=== PATIENT | female | born 1990 ===

== ENCOUNTER 2019-10-28 16:14 | Inpatient (IN) | payer OTHER ==
[2019-10-28] MEDS ORDERED: Methylergonovine 0.2 MG/1 ML Amp IM PRN (16:21)
[2019-10-28] MEDS ORDERED: Misoprostol 200 MCG Tab PO PRN (16:21)
[2019-10-28] MEDS ORDERED: Sodium Chloride 0.9% 10 ML Syringe FLUSH PRN (16:21)
[2019-10-28] MEDS ORDERED: Nalbuphine 10 MG/1 ML Vial IVPUSH PRN (16:21)
[2019-10-28] MEDS ORDERED: Sodium Chloride 0.9% 10 ML SDV IV PRN (16:21)
[2019-10-28] MEDS ORDERED: Carboprost Tromethamine 250 MCG/1 ML Amp IM PRN (16:21)
[2019-10-28] MEDS ORDERED: Ondansetron 4 MG/2 ML SDV IVPUSH PRN (16:21)
[2019-10-28] MEDS ORDERED: Water For Irrigation,Sterile 1,000 ML Container IRR PRN (16:21)
[2019-10-28] MEDS ORDERED: Sodium Chloride 0.9% 2.5 ML Syringe FLUSH PRN (16:21)
[2019-10-28] MEDS ORDERED: Butorphanol 1 MG/ML SDV IVPUSH PRN (16:21)
[2019-10-28] MEDS ORDERED: Lidocaine 1% 50 ML MDV INJECT PRN (16:21)
[2019-10-28] MEDS ORDERED: Tranexamic Acid 1,000 MG in Sodium Chloride 0.9% 100 ML IV PRN (16:21)
[2019-10-28] MEDS ORDERED: Terbutaline 1 MG/ML SDV SUBCUT PRN (16:24)
[2019-10-28] MEDS ORDERED: Misoprostol 25 MCG (1/4 of 100 MCG) Tab VAG PRN ×4 (16:24→17:45)
[2019-10-28] MEDS ORDERED: Oxytocin/0.9 % Sodium Chloride 30 UNIT/500 ML BAG IV SCH ×2 (16:30)
[2019-10-28] MEDS ORDERED: Misoprostol 50 MCG (1/2 of 100 MCG) Tab VAG SCH (17:30)
[2019-10-29] MEDS ORDERED: Misoprostol 50 MCG (1/2 of 100 MCG) Tab VAG PRN
[2019-10-29] MEDS ORDERED: Misoprostol 25 MCG (1/4 of 100 MCG) Tab PO PRN (00:06)
[2019-10-29] MEDS ORDERED: Terbutaline 1 MG/ML SDV SUBCUT PRN (00:06)
[2019-10-29] MEDS: Misoprostol 25 MCG (1/4 of 100 MCG) Tab VAG PRN ×2 (00:14→06:01)
[2019-10-29] MEDS: Lactated Ringers 1,000 ML IV SCH ×3 (01:01→20:00)
[2019-10-29] MEDS ORDERED: Ropivacaine HCl/PF 100 ML ONE ×2 (08:20→17:27)
[2019-10-29] MEDS ORDERED: fentaNYL 100 MCG/2 ML SDV ONE ×2 (08:20→17:28)
--- NOTE | 2019-10-29 08:42 | PCM.PREANE ---
Preanesthetic Assessment - Anesthesia/Transfusion/Family Hx Anesthesia History: Prior Anesthesia Without Reaction Family History of Anesthesia Reaction: No - Physical Assessment NPO Status Date: 10/29/19 NPO Status Time: 00:05 Height: 1.55 m Weight: 72.575 kg ASA Class: 2 - Lab Values: Laboratory Last Values WBC 8.62 K/uL (4.0-11.0) 10/28/19 16:35 RBC 3.91 M/uL (4.30-5.90) L 10/28/19 16:35 Hgb 12.3 g/dL (12.0-16.0) 10/28/19 16:35 Hct 37.3 % (36.0-46.0) 10/28/19 16:35 MCV 95.4 fL (80.0-98.0) 10/28/19 16:35 MCH 31.5 pg (27.0-32.0) 10/28/19 16:35 MCHC 33.0 g/dL (31.0-37.0) 10/28/19 16:35 RDW Std Deviation 43.7 fl (28.0-62.0) 10/28/19 16:35 RDW Coeff of Keith 13 % (11.0-15.0) 10/28/19 16:35 Plt Count 118 K/uL (150-400) L 10/28/19 16:35 MPV 13.20 fL (7.40-12.00) H 10/28/19 16:35 Nucleated RBC % 0.0 /100WBC 10/28/19 16:35 Nucleated RBCs # 0 K/uL 10/28/19 16:35 COVID-19 (JV) NEGATIVE (NEGATIVE) 10/28/19 16:38 Blood Type O POSITIVE 10/28/19 16:35 Antibody Screen NEGATIVE 10/28/19 16:35 - Allergies Allergies/Adverse Reactions: Allergies Allergy/AdvReac Type Severity Reaction Status Date / Time No Known Allergies Allergy Verified 10/28/19 16:21 - Acknowledgements Anesthesia Type Planned: Epidural Pt an Appropriate Candidate for the Planned Anesthesia: Yes Alternatives and Risks of Anesthesia Discussed w Pt/Guardian: Yes Pt/Guardian Understands and Agrees with Anesthesia Plan: Yes PreAnesthesia Questionnaire - Past Health History Medical/Surgical History: Denies Medical/Surgical History 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: - SUBSTANCE USE Smoking Status *Q: Never Smoker Second Hand Smoke Exposure: No Recreational Drug Use History: No - CURRENT (IN HOUSE) MEDS Current Meds: Current Medications Butorphanol Tartrate (Stadol) 1 mg IVPUSH Q1H PRN PRN Reason: Pain Carboprost Tromethamine (Hemabate Ds) 250 mcg IM ASDIRECTED PRN PRN Reason: Post Hemorrhage Oxytocin/Sodium Chloride (Oxytocin 30 Unit/500 Ml-Ns) 30 unit in 500 mls @ 500 mls/hr IV TITRATE YVETTE Tranexamic Acid 1,000 mg/ (Sodium Chloride) 110 mls @ 660 mls/hr IV ONETIME PRN PRN Reason: Bleeding Lactated Ringer's (Ringers, Lactated) 1,000 mls @ 150 mls/hr IV ASDIRECTED YVETTE Last Admin: 10/29/19 01:01 Dose: 150 mls/hr Documented by: Oxytocin/Sodium Chloride (Oxytocin 30 Unit/500 Ml-Ns) 30 unit in 500 mls @ 2 mls/hr IV TITRATE YVETTE; Protocol Lidocaine HCl (Xylocaine 1%) 50 ml INJECT ONETIME PRN PRN Reason: Laceration repair Methylergonovine Maleate (Methergine) 0.2 mg IM ASDIRECTED PRN PRN Reason: Post Hemorrhage Misoprostol (Cytotec) 200 mcg PO ONETIME PRN PRN Reason: Post Hemorrhage Misoprostol (Cytotec) 25 mcg VAG ONETIME PRN PRN Reason: Cervical Ripening Misoprostol (Cytotec) 25 mcg VAG ONETIME PRN PRN Reason: Cervical Ripening Last Admin: 10/28/19 17:59 Dose: 25 mcg Documented by: Misoprostol (Cytotec) 25 mcg VAG Q6H PRN PRN Reason: Other Misoprostol (Cytotec) 25 mcg VAG Q6H PRN PRN Reason: Cervical Ripening Last Admin: 10/29/19 06:01 Dose: 25 mcg Documented by: Misoprostol (Cytotec) 25 mcg PO ONETIME PRN PRN Reason: Cervical Ripening Nalbuphine HCl (Nubain) 10 mg IVPUSH Q1H PRN PRN Reason: Pain (severe 7-10) Ondansetron HCl (Zofran) 4 mg IVPUSH Q6H PRN PRN Reason: Nausea/Vomiting Sodium Chloride (Saline Flush) 10 ml FLUSH ASDIRECTED PRN PRN Reason: Keep Vein Open Sodium Chloride (Saline Flush) 2.5 ml FLUSH ASDIRECTED PRN PRN Reason: Keep Vein Open Sodium Chloride (Normal Saline) 10 ml IV ASDIRECTED PRN PRN Reason: IV Use Sterile Water (Sterile Water For Irrigation) 1,000 ml IRR ASDIRECTED PRN PRN Reason: delivery Terbutaline Sulfate (Brethine) 0.25 mg SUBCUT ASDIRECTED PRN PRN Reason: Tacysystole Terbutaline Sulfate (Brethine) 0.25 mg SUBCUT ASDIRECTED PRN PRN Reason: Tacysystole Discontinued Medications Fentanyl (Sublimaze) Confirm Administered Dose 100 mcg .ROUTE .STK-MED ONE Stop: 10/29/19 08:21 Ropivacaine (Naropin 0.2%) Confirm Administered Dose 100 mls @ as directed .ROUTE .STK-MED ONE Stop: 10/29/19 08:21
--- NOTE | 2019-10-29 08:57 | PCM.PRNOTE ---
- Free Text/Narrative Note: Anes Note Patient requests epidural for L&D. Sitting position. Level L2-L3 midline approach. Sterile technique. Chloraprep scrub to lumbar area. Sterile fenestrated drape applied. Epidural space easily achieved single attempt with ease using CHEL technique. CHEL at 3 cm. Cath threaded 5 cm with ease. Cath secured at 9 cm at skin using sterile clear adhesive dressing. [id number] 3 cc 1.5% lido with epi negative. 0838 load 10 cc 0.2% ropiv with 1 mcg cc fentayl in slow divided doses. 0842 Pump started wtih 90 cc same solution. Rate is 8 cc hr with 6 cc q 20 min prn bolus. Ileana well. Time with patient [id number] Robbie Steve [employer]
[2019-10-29] MEDS ORDERED: Oxytocin/0.9 % Sodium Chloride 30 UNIT/500 ML BAG ONE (10:18)
[2019-10-29] MEDS ORDERED: Bupivacaine 0.5% 10 ML SDV ONE (17:41)
[2019-10-30] MEDS ORDERED: fentaNYL 100 MCG/2 ML SDV ONE ×2 (00:13→00:27)
--- NOTE | 2019-10-30 00:17 | PCM.PRNOTE ---
- Free Text/Narrative Note: Anes Note Patient requires sitting dose in preparation for delivery. Epidural was dosed with 5 cc 2% lido with epi plus 100 mcg fentanyl. Time with patient [id number] Robbie Steve CRNA
[2019-10-30] MEDS ORDERED: Ropivacaine HCl/PF 100 ML ONE (00:27)
--- NOTE | 2019-10-30 00:31 | PCM.PRNOTE ---
- Free Text/Narrative Note: Anes Note Epidural bag change. Epidural infusion is almost complete. A new bag of 100 cc 0.2% ropivicaine with 1 mcg cc fentanyl was placed. Rate is 8 cc hr with 6 cc q 20 min prn bolus. Time with patient [id number] Robbie Steve CRNA
[2019-10-30] MEDS ORDERED: Witch Hazel Medicated Pads 40/Jar TOP PRN (03:42)
[2019-10-30] MEDS ORDERED: Lanolin 100% Cream 7 GM Tube TOP PRN (03:42)
[2019-10-30] MEDS ORDERED: Ibuprofen 400 MG Tab PO PRN (03:42)
[2019-10-30] MEDS ORDERED: oxyCODONE 5 MG Tab PO PRN (03:42)
[2019-10-30] MEDS ORDERED: Docusate Sodium 100 MG Cap PO PRN (03:42)
[2019-10-30] MEDS ORDERED: Acetaminophen 500 MG Tab PO PRN (03:42)
[2019-10-30] MEDS ORDERED: Benzocaine/Menthol 20%-0.5% Spray 78 GM Cannister TOP PRN (03:42)
[2019-10-30] MEDS ORDERED: Bisacodyl 10 MG Supp RECTAL PRN (03:42)
--- NOTE | 2019-10-30 03:49 | PCM.OPNOTE ---
- General Post-Op/Procedure Note Date of Surgery/Procedure: 10/30/19 Operative Procedure(s): /2nd MLL repaired Findings: Viable male APGARs 8, 9 weight 3330 gm. Spontaneous delivery intact placenta with 3V cord Pre Op Diagnosis: 40/5 week IUP. IOL for past due PG Post-Op Diagnosis: Same Anesthesia Technique: Epidural Primary Surgeon: Angie Vilchis EBL in mLs: 300 Complications: none known Condition: Stable Free Text/Narrative:: Dictation [id number]
--- NOTE | 2019-10-30 04:44 | OR ---
SURGEON: Angie Vilchis M.D. DATE OF PROCEDURE: 10/30/2019 PREOPERATIVE DIAGNOSES: 1. 40 and 5/7 weeks intrauterine . 2. Induction of labor for past due . POSTOPERATIVE DIAGNOSES: 1. 40 and 5/7 weeks intrauterine . 2. Induction of labor for past due . PROCEDURES: Spontaneous vaginal delivery, second-degree midline laceration repair. PRIMARY SURGEON: Angie Vilchis MD. ANESTHESIA: Epidural. ESTIMATED BLOOD LOSS: 300 mL. COMPLICATIONS: None known. FINDINGS: Viable male. score 8 and 9 at five minutes. Weight of 3330 g. Spontaneous delivery, intact placenta, 3-vessel cord. DISPOSITION: Infant to nursery, mom in LDRP. PROCEDURE DETAILS: Kiya is a 29-year-old, G1, P0, at 40 and 3/7 weeks' gestational age upon presentation on the evening of 10/28/2019 for scheduled induction for past due . The patient was initiated on Cytotec ripening followed by Pitocin induction. I assumed care on the evening of 10/29/2019. At that time, patient was found to be 7 cm, 90% effaced, 0 station. IUPC had been placed. She was comfortable with an epidural. She made slow progress through the evening hours of 10/29/2019, finally progressed to complete. Shortly after midnight, began pushing efforts, pushed for a little over 2 hours to a +3 station. I was called for delivery. Upon my arrival, patient was placed in modified dorsal lithotomy position, was prepped and draped in the usual aseptic manner. She continued pushing efforts, pushed to +4 station, was able to deliver infant's head atraumatically spontaneously, followed by anterior shoulder, posterior shoulder, and remainder of the body without difficulty. The 's oropharynx and nares were bulb suctioned. was handed off to his mother with attending nursing staff at her side. After a delay, cord was clamped x2 and cut. Cord arterial, cord venous, cord blood sampling was obtained. Light pressure was applied while the placenta was delivered spontaneously intact. Vigorous fundal uterine massage was then applied while 30 units of Pitocin was delivered in 500 mL of IV fluid. Upon inspection of cervix, vaginal sidewalls, and perineum, there was found to be a second-degree laceration that was repaired using 3-0 Vicryl in the usual fashion. There was first-degree right labial laceration present that was repaired using 3-0 Vicryl in continuous running fashion as well. Hemostasis appeared evident. Uterus remained firm. Sponge, instrument, and needle count was correct. The patient remained in LDRP. SALVADOR / DEBORAH /[id number] MTDD
[2019-10-30] MEDS: Ibuprofen 800 MG Tab PO PRN ×3 (04:53→19:38)
[2019-10-30] MEDS: Acetaminophen 500 MG Tab PO PRN ×3 (07:43→21:34)
--- NOTE | 2019-10-30 07:50 | PCM48HPAN ---
Post Anesthesia Note - EVALUATION WITHIN 48HRS OF ANESTHETIC Vital Signs in Normal Range: Yes Patient Participated in Evaluation: Yes Respiratory Function Stable: Yes Airway Patent: Yes Cardiovascular Function Stable: Yes Hydration Status Stable: Yes Pain Control Satisfactory: Yes Nausea and Vomiting Control Satisfactory: Yes Mental Status Recovered: Yes
[2019-10-31] MEDS: Ibuprofen 800 MG Tab PO PRN (04:51)
--- NOTE | 2019-10-31 08:59 | PCM.PNPP ---
- General Info Date of Service: 10/31/19 Functional Status: Reports: Pain Controlled, Tolerating Diet, Ambulating, Urinating - Review of Systems General: Reports: Fatigue. Denies: Fever, Weakness Pulmonary: Denies: Shortness of Breath Cardiovascular: Reports: No Symptoms Gastrointestinal: Reports: No Symptoms Genitourinary: Reports: No Symptoms Musculoskeletal: Reports: No Symptoms Skin: Reports: No Symptoms Neurological: Reports: No Symptoms Psychiatric: Reports: No Symptoms - General Info Date of Service: 10/31/19 - Patient Data Vital Signs - Most Recent: Last Vital Signs Temp 36.1 C 10/31/19 08:00 Pulse 67 10/31/19 08:00 Resp 18 10/31/19 08:00 BP 124/78 10/31/19 08:00 Pulse Ox 96 10/31/19 08:00 Weight - Most Recent: 72.575 kg Lab Results - Last 24 Hours: Laboratory Results - last 24 hr 10/31/19 Range/Units 06:35 Hgb 9.7 L (12.0-16.0) g/dL Hct 29.9 L (36.0-46.0) % Med Orders - Current: Current Medications Acetaminophen (Tylenol Extra Strength) 500 mg PO Q4H PRN PRN Reason: Pain Acetaminophen (Tylenol Extra Strength) 1,000 mg PO Q4H PRN PRN Reason: Pain Last Admin: 10/30/19 21:34 Dose: 1,000 mg Documented by: Benzocaine/Menthol (Dermoplast Pain Relief 20%-0.5% [place]) 78 gm TOP ASDIRECTED PRN PRN Reason: Perineal Comfort Measure Bisacodyl (Dulcolax) 10 mg RECTAL ONETIME PRN PRN Reason: Constipation Carboprost Tromethamine (Hemabate Ds) 250 mcg IM ASDIRECTED PRN PRN Reason: Post Hemorrhage Docusate Sodium (Colace) 100 mg PO BID PRN PRN Reason: Constipation Last Admin: 10/30/19 19:38 Dose: 100 mg Documented by: Emollient Ointment (Lansinoh Hpa) 0 gm TOP ASDIRECTED PRN PRN Reason: Sore Nipples Oxytocin/Sodium Chloride (Oxytocin 30 Unit/500 Ml-Ns) 30 unit in 500 mls @ 500 mls/hr IV TITRATE YVETTE Tranexamic Acid 1,000 mg/ (Sodium Chloride) 110 mls @ 660 mls/hr IV ONETIME PRN PRN Reason: Bleeding Lactated Ringer's (Ringers, Lactated) 1,000 mls @ 150 mls/hr IV ASDIRECTED YVETTE Last Admin: 10/29/19 20:00 Dose: 150 mls/hr Documented by: Ibuprofen (Motrin) 400 mg PO Q4H PRN PRN Reason: Pain Ibuprofen (Motrin) 800 mg PO Q6H PRN PRN Reason: Pain Last Admin: 10/31/19 04:51 Dose: 800 mg Documented by: Methylergonovine Maleate (Methergine) 0.2 mg IM ASDIRECTED PRN PRN Reason: Post Hemorrhage Ondansetron HCl (Zofran) 4 mg IVPUSH Q6H PRN PRN Reason: Nausea/Vomiting Oxycodone HCl (Oxycodone) 5 mg PO Q2H PRN PRN Reason: Pain Sodium Chloride (Saline Flush) 10 ml FLUSH ASDIRECTED PRN PRN Reason: Keep Vein Open Sodium Chloride (Saline Flush) 2.5 ml FLUSH ASDIRECTED PRN PRN Reason: Keep Vein Open Sodium Chloride (Normal Saline) 10 ml IV ASDIRECTED PRN PRN Reason: IV Use Sterile Water (Sterile Water For Irrigation) 1,000 ml IRR ASDIRECTED PRN PRN Reason: delivery Witch Radha (Tucks) 1 pad TOP ASDIRECTED PRN PRN Reason: comfort care Discontinued Medications Bupivacaine HCl (Sensorcaine-Mpf 0.5%) Confirm Administered Dose 10 ml .ROUTE .STK-MED ONE Stop: 10/29/19 17:42 Butorphanol Tartrate (Stadol) 1 mg IVPUSH Q1H PRN PRN Reason: Pain Fentanyl (Sublimaze) Confirm Administered Dose 100 mcg .ROUTE .STK-MED ONE Stop: 10/29/19 08:21 Fentanyl (Sublimaze) Confirm Administered Dose 100 mcg .ROUTE .STK-MED ONE Stop: 10/29/19 17:29 Fentanyl (Sublimaze) Confirm Administered Dose 100 mcg .ROUTE .STK-MED ONE Stop: 10/30/19 00:14 Last Admin: 10/31/19 08:29 Dose: Not Given Documented by: Fentanyl (Sublimaze) Confirm Administered Dose 100 mcg .ROUTE .STK-MED ONE Stop: 10/30/19 00:28 Last Admin: 10/31/19 08:29 Dose: Not Given Documented by: Oxytocin/Sodium Chloride (Oxytocin 30 Unit/500 Ml-Ns) 30 unit in 500 mls @ 2 mls/hr IV TITRATE YVETTE; Protocol Last Titration: 10/30/19 03:55 Dose: Infused Documented by: Ropivacaine (Naropin 0.2%) Confirm Administered Dose 100 mls @ as directed .ROUTE .STK-MED ONE Stop: 10/29/19 08:21 Oxytocin/Sodium Chloride (Oxytocin 30 Unit/500 Ml-Ns) Confirm Administered Dose 30 unit in 500 mls @ as directed .ROUTE .STK-MED ONE Stop: 10/29/19 10:19 Ropivacaine (Naropin 0.2%) Confirm Administered Dose 100 mls @ as directed .ROUTE .STK-MED ONE Stop: 10/29/19 17:28 Ropivacaine (Naropin 0.2%) Confirm Administered Dose 100 mls @ as directed .ROUTE .STK-MED ONE Stop: 10/30/19 00:28 Last Admin: 10/31/19 08:29 Dose: Not Given Documented by: Lidocaine HCl (Xylocaine 1%) 50 ml INJECT ONETIME PRN PRN Reason: Laceration repair Misoprostol (Cytotec) 200 mcg PO ONETIME PRN PRN Reason: Post Hemorrhage Misoprostol (Cytotec) 25 mcg VAG ONETIME PRN PRN Reason: Cervical Ripening Misoprostol (Cytotec) 25 mcg VAG ONETIME PRN PRN Reason: Cervical Ripening Last Admin: 10/28/19 17:59 Dose: 25 mcg Documented by: Misoprostol (Cytotec) 25 mcg VAG Q6H PRN PRN Reason: Other Misoprostol (Cytotec) 25 mcg VAG Q6H PRN PRN Reason: Cervical Ripening Last Admin: 10/29/19 06:01 Dose: 25 mcg Documented by: Misoprostol (Cytotec) 25 mcg PO ONETIME PRN PRN Reason: Cervical Ripening Nalbuphine HCl (Nubain) 10 mg IVPUSH Q1H PRN PRN Reason: Pain (severe 7-10) Terbutaline Sulfate (Brethine) 0.25 mg SUBCUT ASDIRECTED PRN PRN Reason: Tacysystole Terbutaline Sulfate (Brethine) 0.25 mg SUBCUT ASDIRECTED PRN PRN Reason: Tacysystole - Recovery Exam Fundal Tone: Firms with Massage Fundal Level: At Umbilicus Fundal Placement: Midline Lochia Amount: Scant Lochia Color: Rubra/Red Perineum Description: Other (see below) Other Perinuem Description: 2nd degree laceration with repair Episiotomy/Laceration: Approximated Bladder Status: Voiding Urinary Elimination: Voided - Exam General: Alert, Oriented Lungs: Normal Respiratory Effort Cardiovascular: Regular Rate, Regular Rhythm GI/Abdominal Exam: Normal Bowel Sounds, Soft Extremities: Pedal Edema (trace). No: Rambo's Sign Skin: Warm, Dry, Intact Neurological: No New Focal Deficit Psy/Mental Status: Alert, Normal Affect, Normal Mood - Problem List & Annotations (1) Vaginal delivery SNOMED Code(s): 761236450 Code(s): O80 - ENCOUNTER FOR FULL-TERM UNCOMPLICATED DELIVERY Status: Acute Current Visit: Yes - Problem List Review Problem List Initiated/Reviewed/Updated: Yes - Assessment Assessment:: PPD 1 status post - Plan Plan:: Doing well overall, would like to go home today. Discharge instructions reviewed. Follow up at [facility] 6 weeks. Infection and bleeding warnings reviewed. Discharge to home today.
== END 2019-10-31 13:20 | disposition home or self-care (01) | DRG 807 ==
LOC: MW.OB 16:14 → OBSVTOIN 10-30 03:15 → MW.OB 10-30 10:10
PROVIDERS: ADMIT Obstetrics & Gynecology; ATTEND Obstetrics & Gynecology
PROC: 10E0XZZ Delivery of Products of Conception, External Approach (ICD-10-PCS; principal; 2019-10-30)
PROC: 0KQM0ZZ Repair Perineum Muscle, Open Approach (ICD-10-PCS; 2019-10-30)
PROC: 10907ZC Drainage of Amniotic Fluid, Therapeutic from Products of Conception, Via Natural or Artificial Opening (ICD-10-PCS; 2019-10-30)
PROC: 10H07YZ Insertion of Other Device into Products of Conception, Via Natural or Artificial Opening (ICD-10-PCS; 2019-10-30)
PROC: 3E033VJ Introduction of Other Hormone into Peripheral Vein, Percutaneous Approach (ICD-10-PCS; 2019-10-30)
PROC: 3E0P7VZ Introduction of Hormone into Female Reproductive, Via Natural or Artificial Opening (ICD-10-PCS; 2019-10-30)
PROC: 3E0R3BZ Introduction of Anesthetic Agent into Spinal Canal, Percutaneous Approach (ICD-10-PCS; 2019-10-30)
PROC: 00HU33Z Insertion of Infusion Device into Spinal Canal, Percutaneous Approach (ICD-10-PCS; 2019-10-30)
DX: O48.0 Post-term pregnancy (principal); Z37.0 Single live birth; Z3A.40 40 weeks gestation of pregnancy; O70.1 Second degree perineal laceration during delivery; Z11.59 Encounter for screening for other viral diseases
CPT/HCPCS: 36415; 51702; 59025; 59409; 82803; 85014; 85018; 85027; 86592; 86850; 86900; 86901; A9270-GY; J2590; J2795; J3010; J3490; J7120; U0002